=== PATIENT | male | born 1995 | race Caucasian/White ===

== ENCOUNTER 2017-07-10 23:52 | Inpatient (IN) | payer OTHER ==
[~2017-07-10] VITALS: Ht 182.9 cm; Wt 85.2 kg
[~2017-07-10 23:52] MED LIST: HYDR25CA PO
--- NOTE | 2017-07-11 00:24 | EMERGENCY ROOM VISIT NOTE ---
History Report prepared by Dionisio: Cathie La Under the Supervision of: Dr. Tony Hughes M.D. First contact with patient: 00:18 Chief Complaint: OVERDOSE (ACCIDENTAL) Stated Complaint: MIXED SLEEPING PILLS AND BEER History of Present Illness The patient is a 21 year old male who presents to the Emergency Room with complaints of an overdose occurring shortly prior to arrival. His roommates state that the patient mixed sleeping pills and alcohol. His roommates state that the patient keeps changing what he is saying about how much he drank. They state that he says he drank 1 beer but then would state that he had 3 beers. Per his roommates, the patient was playing video games, but then passed out. His roommates state that he fell down 4 stairs and hit his face. Limited HPI secondary to intoxication. Patient has heavily slurred speech. He said he took medications but difficulty determining what he said he took. Source of History: patient, roommate History Limited By: other (overdose) Onset: shortly prior to arrival Position: other (global) Quality: other (overdose ) Review of Systems Limited ROS secondary to intoxication. Past Medical & Surgical Medical Problems: (1) Depression (2) Insomnia Family History Patient reports no known family medical history. Social History Smoking Status: Never Smoker Drug Use: none Marital Status: single Housing Status: lives with roommate Occupation Status: [employer] Current/Historical Medications Scheduled Venlafaxine Hcl (Venlafaxine Extended Rel), 1 CAP PO DAILY Scheduled PRN Zolpidem Tartrate (Ambien), 10 MG PO HS PRN for Sleep Allergies Coded Allergies: No Known Allergies (Unverified , 07/11/17) Physical Exam Vital Signs Date Time Temp Pulse Resp B/P (MAP) Pulse Ox O2 Delivery O2 Flow Rate FiO2 07/11/17 04:01 143/87 07/11/17 03:56 71 22 141/89 100 07/11/17 03:56 35 07/11/17 03:51 146/92 07/11/17 03:46 138/90 07/11/17 03:45 71 07/11/17 03:41 144/87 07/11/17 03:36 146/86 07/11/17 03:31 140/91 07/11/17 03:26 70 19 149/92 100 07/11/17 03:21 143/89 07/11/17 03:20 74 24 100 07/11/17 03:16 149/94 07/11/17 03:15 80 17 07/11/17 03:11 154/91 07/11/17 03:10 72 24 100 07/11/17 03:06 131/90 07/11/17 03:05 74 18 131/90 100 Mechanical Ventilator 07/11/17 03:05 72 12 100 07/11/17 03:00 71 12 100 07/11/17 02:56 145/88 07/11/17 02:55 72 12 100 07/11/17 02:51 138/85 07/11/17 02:50 73 12 100 07/11/17 02:46 134/89 07/11/17 02:45 71 14 100 07/11/17 02:41 140/90 07/11/17 02:40 73 12 100 07/11/17 02:36 138/84 07/11/17 02:35 73 12 100 07/11/17 02:31 134/84 07/11/17 02:30 75 12 100 07/11/17 02:26 143/80 07/11/17 02:25 80 12 100 07/11/17 02:21 143/87 07/11/17 02:20 84 17 100 07/11/17 02:16 146/92 07/11/17 02:15 82 19 100 07/11/17 02:11 143/86 07/11/17 02:10 81 17 100 07/11/17 02:06 137/92 07/11/17 02:05 81 13 100 07/11/17 02:01 133/78 07/11/17 02:00 79 13 100 07/11/17 01:51 113/65 07/11/17 01:50 74 12 100 07/11/17 01:46 117/65 07/11/17 01:45 75 22 100 07/11/17 01:41 35 07/11/17 01:41 115/58 07/11/17 01:40 74 19 100 07/11/17 01:36 134/85 07/11/17 01:35 76 12 100 07/11/17 01:31 130/94 07/11/17 00:44 100 07/11/17 00:13 86 07/10/17 23:58 36.9 92 17 125/79 97 Room Air Physical Exam GENERAL: Patient is heavily intoxicated and clearly under influence. HEENT: Mucous membranes moist, no nasal congestion. Significant nystagmus bilateral eyes. Slightly enlarged left pupil that is reactive. Multiple contusions over face and right-sided head. NECK: No stridor, no adenopathy, no meningismus, trachea is midline. LUNGS: No dyspnea. Clear to auscultation and equal bilaterally. No wheeze, no rhonchi. HEART: Regular rate and rhythm. No murmurs, rubs, gallops appreciated. ABDOMEN: Soft, nontender, bowel sounds positive, no masses appreciated, no peritonitis. BACK: No midline tenderness, no CVA tenderness EXTREMITIES: Normal motion all extremities, no cyanosis, no edema. NEUROLOGIC: No acute motor or sensory deficits, no focal weakness, cranial nerves grossly intact.Slurred speech with difficulty redirecting patient. Smells heavily of alcohol. SKIN: No rash, no jaundice, no diaphoresis. Medical Decision & Procedures ER Provider Diagnostic Interpretation: Radiology results and stated below per my review and radiologist interpretation: Chest X-Ray: No pneumothorax. No fracture. VT tube 4 cm from the maia. Radiology results and stated below per my review and [facility]. CT CHEST with Contrast: Some motion artifact ETT tip is about 3 cm above the maia No acute parenchymal lung disease. No pneumothorax or pleural effusions. Heart and mediastinal structures appear normal. No acute osseous abnormalities. CT ABDOMEN & PELVIS With Contrast: Solid organs are unremarkable. No free air or free fluid. No bowel obstruction. No acute osseous abnormalities. CT HEAD: No acute intracranial hemorrhage, transcortical infarction or mass. No acute fractures. Broad-based maxillary sinus mucous retention cyst. The rest of the visualized paranasal sinuses are clear. The mastoid air cells are clear. CT FACIAL: No acute facial bone fractures. Right-sided facial contusion. No acute mandible fractures. Orbits appear normal. Left frontal sinus is opacified and partial opacification of left anterior ethmoid air cells. Broad-based mucous retention cyst within the right maxillary sinus. Left maxillary sinuses clear. Sphenoid sinuses are clear. CT C SPINE: Normal alignment of cranial-cervical junction. No acute fractures or malalignment. No paraspinous hematoma. Intubated. Laboratory Results Test 07/11/17 00:45 07/11/17 00:51 07/11/17 02:10 RDW Standard Deviation 38.6 fL (36.4-46.3) RDW Coefficient of Variation 12.0 % (11.5-14.5) White Blood Count 6.16 K/uL (4.8-10.8) Red Blood Count 5.08 M/uL (4.7-6.1) Hemoglobin 15.7 g/dL (14.0-18.0) Hematocrit 45.3 % (42-52) Mean Corpuscular Volume 89.2 fL (80-100) Mean Corpuscular Hemoglobin 30.9 pg (25-34) Mean Corpuscular Hemoglobin Concent 34.7 g/dl (32-36) Platelet Count 160 K/uL (130-400) Mean Platelet Volume 10.2 fL (7.4-10.4) Neutrophils (%) (Auto) 54.5 % Lymphocytes (%) (Auto) 36.4 % Monocytes (%) (Auto) 7.1 % Eosinophils (%) (Auto) 1.5 % Basophils (%) (Auto) 0.3 % Neutrophils # (Auto) 3.36 K/uL (1.4-6.5) Lymphocytes # (Auto) 2.24 K/uL (1.2-3.4) Monocytes # (Auto) 0.44 K/uL (0.11-0.59) Eosinophils # (Auto) 0.09 K/uL (0-0.5) Basophils # (Auto) 0.02 K/uL (0-0.2) Immature Granulocyte % (Auto) 0.2 % Immature Granulocyte # (Auto) 0.01 K/uL (0.00-0.02) Est Creatinine Clear Calc Drug Dose 99.4 ml/min Osmolality 315 mOsm/kg (280-300) Total Bilirubin 0.3 mg/dl (0.2-1) Aspartate Amino Transf (AST/SGOT) 12 U/L (15-37) Alanine Aminotransferase (ALT/SGPT) 13 U/L (12-78) Alkaline Phosphatase 60 U/L (45-117) Troponin I < 0.015 ng/ml (0-0.045) Total Protein 7.2 gm/dl (6.4-8.2) Albumin 4.4 gm/dl (3.4-5.0) Globulin 2.8 gm/dl (2.5-4.0) Albumin/Globulin Ratio 1.6 (0.9-2) Thyroid Stimulating Hormone (TSH) 0.592 uIu/ml (0.300-4.500) Salicylates Level < 1.7 mg/dl (2.8-20) Acetaminophen Level < 2 ug/ml (10-30) Ethyl Alcohol mg/dL 87.6 mg/dl (0-3) Bedside Hemoglobin 15.6 g/dl (14.0-18.0) Bedside Hematocrit 46 % (42-52) Bedside Sodium 141 mEq/L (135-144) Bedside Potassium 4.0 mEq/L (3.3-5.0) Bedside Chloride 103 mEq/L (101-112) Bedside Total CO2 23 mEq/l (24-31) Bedside Blood Urea Nitrogen 17 mg/dl (7-18) Bedside Creatinine 1.4 mg/dl (0.6-1.3) Bedside Glucose (other) 89 mg/dl (70-99) Bedside Ionized Calcium (Alfred) 1.19 mmol/l (1.12-1.32) Urine Color YELLOW Urine Appearance CLEAR (CLEAR) Urine pH 5.0 (4.5-7.5) Urine Specific [place] 1.039 (1.000-1.030) Urine Protein NEG (NEG) Urine Glucose (UA) NEG (NEG) Urine Ketones NEG (NEG) Urine Occult Blood NEG (NEG) Urine Nitrite NEG (NEG) Urine Bilirubin NEG (NEG) Urine Urobilinogen NEG (NEG) Urine Leukocyte Esterase NEG (NEG) Urine WBC (Auto) 1-5 /hpf (0-5) Urine RBC (Auto) 0-4 /hpf (0-4) Urine Hyaline Casts (Auto) 1-5 /lpf (0-5) Urine Epithelial Cells (Auto) >30 /lpf (0-5) Urine Bacteria (Auto) NEG (NEG) Urine Renal Epithelial Cells /lpf (0-5) Urine Osmolality 275 mOms/kg (500-800) Urine Opiates Screen NEG (NEG) Urine Methadone, Qualitative NEG (NEG) Urine Barbiturates NEG (NEG) Urine Phencyclidine (PCP) Level NEG (NEG) Ur Amphetamine/Methamphetamine NEG (NEG) MDMA (Ecstasy) Screen NEG (NEG) Urine Benzodiazepines Screen POS (NEG) Urine Cocaine Metabolite NEG (NEG) Urine Marijuana (THC) POS (NEG) Laboratory results as reviewed by me. Medications Administered Medications (Trade) Dose Ordered Sig/Lorenzo Route Start Time Stop Time Status Last Admin Dose Admin Lorazepam (Ativan Inj) 2 mg STK-MED ONCE .ROUTE 07/11/17 00:33 07/11/17 00:34 DC 07/11/17 00:37 2 MG Miscellaneous (Rapid Sequence Induction Bag) 1 ea STK-MED ONCE N/A 07/11/17 00:39 07/11/17 00:40 DC 07/11/17 00:39 1 EA Propofol (Diprivan Iv Emulsion 100ml Vial) 1 dose UD PRN IV 07/11/17 01:00 07/11/17 04:44 DC 07/11/17 00:53 1 DOSE Sodium Chloride 1,000 ml @ 999 mls/hr Q1H1M STAT IV 07/11/17 00:48 07/11/17 01:48 DC 07/11/17 00:46 999 MLS/HR Sodium Chloride 1,000 ml @ 125 mls/hr Q8H STAT IV 07/11/17 01:46 07/11/17 04:44 DC 07/11/17 01:46 125 MLS/HR Hydromorphone HCl (Dilaudid Inj) 1 mg STK-MED ONCE .ROUTE 07/11/17 02:20 07/11/17 02:21 DC 07/11/17 02:20 1 MG Procedure Intubation: Indication: Combative, polysubstance overdose with head injury and need for rapid stabilization Performed by: Jonatan Espinoza, Managed Services Consultant, [facility] under my direct supervision and with my assistance on first attempt. Vitals stable with 100% O2 throughout entire procedure. Meds: etomidate 30mg / succinylcholine 150mg Equipment: 7.5 cuffed tube, #3 Glidescope with stylet. Confirmed: End tital, color change, breath sounds, CXR CXR: ET tube in place mildly high and thus advanced 2 cm. Rep[address] by CT. There were no complications nor difficulties with intubation. ECG Indication: other (altered mental status ) Rate (beats per minute): 74 Rhythm: normal sinus Findings: ST elevation (Anterior leads consistent with earlier repolarization) , no ectopy ED Course 0019: The patient was evaluated in room A10. A complete history and physical exam was performed. 0030: I told the nursing staff to immediately start the patient on Ativan. I told them to be careful with his head, face, and neck as he is a trauma patient. I requested to get an IV, and if they are unable to get it then we will move ahead to intubation. 0033: Ordered Lorazepam 2 mg. 0037: I was present and assisted Jonatan Espinoza [facility] Managed Services Consultant while he was intubating the patient. 0039: Ordered Rapid Sequence Induction Bag. 0048: Ordered Sodium Chloride 1,000 ml @ 999 mls/hr IV, Propofol 1 dose IV. 0055: I talked to the patient's friends and made them aware of what happened. They do not know any family contact information. 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 0100: Ordered Propofol 1 dose IV. 0101: The patient is mildly agitated. He was given 100 mg of Propofol and the tube was advanced 2 cm. 0105: The patient is now at CT scan. 0106: I tried contacting his father and mother, Laci Cunha ([phone]) and Janelle Cunha ([phone]). Mother notes he has a history of problems with benzodiazepines. 0146: Ordered Sodium Chloride 1,000 ml @ 125 mls/hr IV. 0205: The patient's vitals are stable. He is sedated on Propofol. Awaiting CT reports. 0220: The patient is being evaluated by Dr. Uribe 0222: Discussed the patient's case with Tashi Fiore PA-C, ICU. The patient will be evaluated for further treatment and disposition. 0230: Mother notes that the patient is on Lamictal, Ambien, and she believes venlafaxine. She is not aware of any attempt of an overdose. She reports that he has a history of a seizure. 0330: Upon reevaluation, the patient is resting. The patient will be evaluated in the ICU. Medical Decision Differential: Intracranial Injury, Cervical Injury, Intrathoracic/Abdominal Injury, Neurologic Injuries, Fractures/Dislocations, Lacerations, Tetanus Status , amongst other pathologies entertained. 21 yr old male arrives from apartment with roommates for evaluation of head injury after falling down short flight of stairs, in addition to having likely overdosed on multiple medications. Shortly after my initial evaluation patient became increasingly combative, beligerent and unable to redirect. I was unable to verbally deescalate nor re-direct the patient. The patient's combative behavior was risking a catastrophe. To protect the staff and the patient from harm it was necessary to chemically and physically restrain the patient. As he clearly had a head injury, he may have polysubstance overdose and the high acuity and need for rapid control of situation I felt that safest option was to intubate. 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 With his slurred changing story it is possible he was referring to diphenhydramine, fexofenadine, or even methylphenidate, but difficult to be sure of which if any he had taken as unable to get clear story from him. Patient intubated with etomidate/succinylcholine under my direct supervision and assistance by [facility] Managed Services Consultant Jonatan Espinoza. In line stabilization of neck maintained. CXR with mildly high et tube which was advanced and confirmed by following CT. CT head, face, cervical, chest, abdo, pelvis done given inability to get acurate evaluation in this patient (now intubated), his AGUILAR of falling down stairs intoxicated, and the clear evidence of multiple contusions to face/head. Fortunately other than contusions of face/head there were no acute traumatic findings. After intubation we were able to obtain EKG (mild ST elevation consistent with early repol), labs, and send for CT. OG placed as well. Labs with mild renal insufficiency and modest Etoh, otherwise unremarkable. Drug screen with benzos (ambien, ativan we gave, +/- illicit). Mild dehydration by urine. Given fluids, propofol with PRN bolus + Dilaudid for agitation, and monitored closely. Many repetitive evaluations of patient throughout stay and multiple conversations with hospitalist and CCM team. I discussed with mother on 2 occasions to make her aware of what was happening. Admits that they are somewhat estranged and that she does not plan on coming up to see him at this time. She discussed his previous benzo addiction as well as noted he takes Lamictal for seizure, Venlafaxine for depression and Ambien for sleep. She is unaware of other medications. [place] Drug Monitoring Program Search Results: patient reviewed within database Drug Monitoring Findings: Multiple Ambien prescriptions found over the last few months. Head Trauma GCS Score: 12 Medication Reconcilliation Current Medication List: was personally reviewed by me Blood Pressure Screening Patient's blood pressure: Normal blood pressure Consults Time Called: 0200 Consulting Physician: Tashi Fiore PA-C, ICU Returned Call: [phone] Discussed the patient's case. The patient will be evaluated for further treatment and disposition. Additional Consults: Time Called: 020 Consulted Physician: Dr. Joel Berman Returned Call: [phone] Additional Comments: Discussed the patient's case. The patient will be evaluated for further treatment and disposition. Impression Primary Impression: Polysubstance overdose Additional Impressions: Combative behavior Head injury, closed Facial contusion Anticholinergic syndrome Renal insufficiency Dehydration Critical Care I have personally spent greater than 130 minutes of critical care time in the direct management of this patient. This was a life/limb threatening event. This includes time spent evaluating patient, direct bedside care, chart review, placing orders, interpretation of diagnostic studies, discussion with consultants, patient, and family members, as well as other required patient management activities. This 130 minutes is in excess of all separately billable procedures. Scribe Attestation The scribe's documentation has been prepared under my direction and personally reviewed by me in its entirety. I confirm that the note above accurately reflects all work, treatment, procedures, and medical decision making performed by me. Departure Information Dispostion Being Evaluated By Hospitalist [facility] (PCP) Patient Instructions My [facility] Health Problem Qualifiers
[2017-07-11] MEDS ORDERED: ZOLP10TA PO (00:32)
[2017-07-11] MEDS ORDERED: VENL75CA73 PO (00:32)
[2017-07-11] MEDS ORDERED: LORAZEPAM 2 MG/ML 1 ML VIAL ONE (00:33)
[2017-07-11] MEDS ORDERED: RAPID SEQUENCE INDUCTION BAG ONE (00:39)
[2017-07-11] MEDS ORDERED: SODIUM CHLORIDE 0.9% 1000ML 1,000 ML IV STA ×2 (00:48→01:46)
[2017-07-11] MEDS ORDERED: PROPOFOL IV EMULSION 10 MG/ML 100 ML VIAL IV ONE (00:48)
[2017-07-11 00:56] LABS: BASO % 0.3 %; BASO ABS # 0.02 K/uL (0-0.2); COMPLETE YES; EOS % 1.5 %; HEMATOCRIT 45.3 % (42-52); IG% 0.2 %; LYMPH % 36.4 %; LYMPH ABS # 2.24 K/uL (1.2-3.4); MEAN CELL VOLUME 89.2 fL (80-100); MEAN CORPUSCULAR HEMOGLOBIN 30.9 pg (25-34); MEAN CORPUSCULAR HGB CONC 34.7 g/dl (32-36); MEAN PLATELET VOLUME 10.2 fL (7.4-10.4); MONO % 7.1 %; NEUT % 54.5 %; PLATELET COUNT 160 K/uL (130-400); RED BLOOD COUNT 5.08 M/uL (4.7-6.1); WHITE BLOOD COUNT 6.16 K/uL (4.8-10.8)
[2017-07-11] MEDS ORDERED: PROPOFOL IV EMULSION 10 MG/ML 100 ML VIAL IV PRN ×2 (01:00→05:30)
[2017-07-11] MEDS ORDERED: OPTIRAY 320 IV PRN (01:00)
[2017-07-11 01:05] LABS: ISTAT CREATININE 1.4 mg/dl (0.6-1.3); ISTAT HEMOGLOBIN 15.6 g/dl (14.0-18.0); ISTAT IONIZED CALCIUM 1.19 mmol/l (1.12-1.32)
[2017-07-11 01:17] LABS: ALT/SGPT 13 U/L (12-78); BLOOD UREA NITROGEN 16 mg/dl (7-18); BUN/CREATININE RATIO 12.4 (10-20); CALCIUM 8.6 mg/dl (8.5-10.1); CARBON DIOXIDE 25 mmol/L (21-32); CHLORIDE 107 mmol/L (98-107); CREATININE 1.29 mg/dl (0.60-1.40); GLUCOSE 88 mg/dl (70-99); SODIUM 140 mmol/L (136-145)
[2017-07-11 01:28] LABS: ALB/GLOB RATIO 1.6 (0.9-2); ALKALINE PHOSPHATASE 60 U/L (45-117); AST/SGOT 12 U/L (15-37); THYROID STIMULATING HORMONE 0.592 uIu/ml (0.300-4.500)
[2017-07-11 01:37] LABS: ACETAMINOPHEN < 2 ug/ml (10-30)
[2017-07-11] MEDS ORDERED: HYDROmorphone INJ 1 MG/ML SYR ONE (02:20)
[2017-07-11 03:31] LABS: URINE APPEARANCE CLEAR (CLEAR); URINE BILIRUBIN NEG (NEG); URINE COLOR YELLOW; URINE EPITHELIAL CELL AUTO >30 /lpf (0-5); URINE NITRITE NEG (NEG); URINE SPECIFIC GRAVITY 1.039 (1.000-1.030); UROBILINOGEN NEG (NEG); ZZURINE CULT IF INDIC CATH NO
[2017-07-11 03:33] LABS: MANUAL MICROSCOPIC REQUIRED? NO; REVIEW REQ? YES
[2017-07-11 04:15] VITALS: BP 134/98; PULSE 83; TEMP 36.5; O2SAT 100; Ht 182.9 cm; Wt 85.2 kg
[2017-07-11 04:20] LABS: COCAINE,URINE NEG (NEG); PHENCYCLIDINE, URINE NEG (NEG)
[2017-07-11] MEDS ORDERED: FENTANYL CITRATE INJ 50 MCG/1 ML 2 ML VIAL IV PRN (04:30)
[2017-07-11] MEDS ORDERED: NORMOSOL R 1,000 ML IV SCH (04:30)
[2017-07-11 05:01] VITALS: BP 123/91; PULSE 75; O2SAT 100
[2017-07-11 05:07] LABS: BENZODIAZEPINE, URINE POS (NEG)
--- NOTE | 2017-07-11 05:18 | Critical Care Consultation ---
Critical Care Consultation Date of Consultation: Jul 11, 2017. Attending Physician: Dr. Avila Reason for Consultation: Altered mental status and combative patient in the setting of alcohol and prescription medication abuse requiring sedation and endotracheal intubation. History of Present Illness History of present illness was unable to be obtained from the patient secondary to current state of sedation and endotracheal intubation. Historical information was obtained from Emergency Department staff an providers as well as nursing notes. Patient is a 21-year-old male who was reportedly found by friends to be extremely intoxicated. The patient allegedly sustained a fall down approximately 4 steps. In his room, he was found to have an open pill bottle of Ambien pills present. He is known to be prescribed these. He was brought to the emergency Department by private vehicle with his friends. On arrival, the patient was alert and conversant with staff members. He was initially argumentative with staff, but was agreeable to initial evaluation. Eventually, the patient became increasingly combative with staff and became a threat to himself as well as staff members. At this point, the patient was sedated and endotracheally intubated. While in the emergency department, the patient had an essentially unremarkable laboratory workup. He had trouble scans performed of the head, neck, chest, and abdomen/pelvis which were all essentially unremarkable. The friends were uncertain as to what the patient took specifically. There was concern of Ambien use versus fexofenadine use versus methylphenidate use. Per conversation with ED physician, the patient's mother was contacted and is reportedly estranged from the patient. The patient had an apparent history of benzodiazepine abuse last year, however she is uncertain if he is still using his medications. Per records and per conversation with mother, there was concern for possible underlying seizure disorder status post one previous seizure in the past. He does have prescription for Lamictal. Past Medical/Surgical History Medical Problems: (1) Depression (2) Insomnia Family History Patient reports no known family medical history. noncontributory Social History Smoking Status: Never Smoker Smokeless Tobacco Use: No Alcohol Use: Drug Use: none Marital Status: single Housing Status: lives with roommate Occupation Status: [employer] student Allergies Coded Allergies: No Known Allergies (Unverified , 07/11/17) Home Medications Scheduled Venlafaxine Hcl (Venlafaxine Extended Rel), 1 CAP PO DAILY Scheduled PRN Zolpidem Tartrate (Ambien), 10 MG PO HS PRN for Sleep Current Inpatient Medications Current Inpatient Medications Medications (Trade) Dose Ordered Sig/Lorenzo Route Start Time Stop Time Status Last Admin Dose Admin Propofol (Diprivan Iv Emulsion 100ml Vial) 1 dose UD PRN IV 07/11/17 01:00 07/14/17 00:59 07/11/17 00:53 1 DOSE Ioversol (Optiray 320) 100 ml UD PRN IV 07/11/17 01:00 07/15/17 00:59 Sodium Chloride 1,000 ml @ 125 mls/hr Q8H STAT IV 07/11/17 01:46 07/11/17 09:45 07/11/17 01:46 125 MLS/HR Review of Systems Unable to obtain secondary to patient's current state of sedation and endotracheal intubation. Physical Exam Date Time Temp Pulse Resp B/P (MAP) Pulse Ox O2 Delivery O2 Flow Rate FiO2 07/11/17 03:45 71 07/11/17 03:21 143/89 07/11/17 03:20 74 24 100 07/11/17 03:16 149/94 07/11/17 03:15 80 17 07/11/17 03:11 154/91 07/11/17 03:10 72 24 100 07/11/17 03:06 131/90 07/11/17 03:05 74 18 131/90 100 Mechanical Ventilator 07/11/17 03:05 72 12 100 07/11/17 03:00 71 12 100 07/11/17 02:56 145/88 07/11/17 02:55 72 12 100 07/11/17 02:51 138/85 07/11/17 02:50 73 12 100 07/11/17 02:46 134/89 07/11/17 02:45 71 14 100 07/11/17 02:41 140/90 07/11/17 02:40 73 12 100 07/11/17 02:36 138/84 07/11/17 02:35 73 12 100 07/11/17 02:31 134/84 07/11/17 02:30 75 12 100 07/11/17 02:26 143/80 07/11/17 02:25 80 12 100 07/11/17 02:21 143/87 07/11/17 02:20 84 17 100 07/11/17 02:16 146/92 10/26/17 02:15 82 19 100 07/11/17 02:11 143/86 07/11/17 02:10 81 17 100 07/11/17 02:06 137/92 07/11/17 02:05 81 13 100 07/11/17 02:01 133/78 07/11/17 02:00 79 13 100 07/11/17 01:51 113/65 07/11/17 01:50 74 12 100 07/11/17 01:46 117/65 07/11/17 01:45 75 22 100 07/11/17 01:41 35 07/11/17 01:41 115/58 07/11/17 01:40 74 19 100 07/11/17 01:36 134/85 07/11/17 01:35 76 12 100 07/11/17 01:31 130/94 07/11/17 00:44 100 07/11/17 00:13 86 07/10/17 23:58 36.9 92 17 125/79 97 Room Air VITAL SIGNS - Vital signs and nursing notes were reviewed. GENERAL - 21-year-old male appearing his stated age who is in no acute distress. Sedated and endotracheally intubated. Retracts extremities to painful stimuli. SKIN - Small abrasion noted to the bridge of the nose. HEAD - NC/AT. EYES - Sluggish pupils with EOMI bilaterally. Sclera anicteric. Palpebral conjunctiva pink and moist with no injection noted. EARS - No deformities of external structures noted on gross examination bilaterally. External auditory canals without discharge or otorrhea. Tympanic membranes pearly dasilva without retraction or bulging. No hemotympanum. No fluid or purulent material visualized behind the TM. NOSE - Midline and without cyanosis. No epistaxis or purulent drainage noted. Septum midline without deviation or septal hematoma noted. MOUTH/OROPHARYNX - Without perioral cyanosis. Buccal mucosa pink and moist. NECK - Neck with FROM. Supple to palpation. No nuchal rigidity. LUNGS - Chest wall symmetric without accessory muscle use, intercostals retractions, or central cyanosis. Normal vesicular breath sounds CTA B/L. No wheezes, rales, or rhonchi appreciated. CARDIAC - RRR with S1/S2. No murmur, rubs, or gallops appreciated. ABDOMEN - Abdominal contour flat without pulsations or visible masses. BS normoactive all four quadrants. No tenderness, palpable masses, hepatosplenomegaly, or ascites noted. EXTREMITIES - No clubbing or peripheral cyanosis. No pretibial edema present. +3 /5 radial and dorsalis pedis pulses palpated throughout. NEUROLOGIC - Unable to be assessed secondary to state of sedation with endotracheal intubation. PSYCH - Unable to be assessed secondary to state of sedation with endotracheal intubation. Laboratory Results Last 24 Hours Test 07/11/17 00:45 07/11/17 00:51 07/11/17 02:10 White Blood Count 6.16 K/uL Red Blood Count 5.08 M/uL Hemoglobin 15.7 g/dL Hematocrit 45.3 % Mean Corpuscular Volume 89.2 fL Mean Corpuscular Hemoglobin 30.9 pg Mean Corpuscular Hemoglobin Concent 34.7 g/dl Platelet Count 160 K/uL Mean Platelet Volume 10.2 fL Neutrophils (%) (Auto) 54.5 % Lymphocytes (%) (Auto) 36.4 % Monocytes (%) (Auto) 7.1 % Eosinophils (%) (Auto) 1.5 % Basophils (%) (Auto) 0.3 % Neutrophils # (Auto) 3.36 K/uL Lymphocytes # (Auto) 2.24 K/uL Monocytes # (Auto) 0.44 K/uL Eosinophils # (Auto) 0.09 K/uL Basophils # (Auto) 0.02 K/uL RDW Standard Deviation 38.6 fL RDW Coefficient of Variation 12.0 % Immature Granulocyte % (Auto) 0.2 % Immature Granulocyte # (Auto) 0.01 K/uL Sodium Level 140 mmol/L Potassium Level 4.0 mmol/L Chloride Level 107 mmol/L Carbon Dioxide Level 25 mmol/L Anion Gap 8.0 mmol/L 19.0 mmol/L Blood Urea Nitrogen 16 mg/dl Creatinine 1.29 mg/dl Est Creatinine Clear Calc Drug Dose 99.4 ml/min Estimated GFR () 91.2 Estimated GFR (Non- 78.7 BUN/Creatinine Ratio 12.4 Random Glucose 88 mg/dl Calcium Level 8.6 mg/dl Total Bilirubin 0.3 mg/dl Aspartate Amino Transf (AST/SGOT) 12 U/L Alanine Aminotransferase (ALT/SGPT) 13 U/L Alkaline Phosphatase 60 U/L Total Creatine Kinase 203 U/L Troponin I < 0.015 ng/ml Total Protein 7.2 gm/dl Albumin 4.4 gm/dl Globulin 2.8 gm/dl Albumin/Globulin Ratio 1.6 Thyroid Stimulating Hormone (TSH) 0.592 uIu/ml Salicylates Level < 1.7 mg/dl Acetaminophen Level < 2 ug/ml Ethyl Alcohol mg/dL 87.6 mg/dl Bedside Hemoglobin 15.6 g/dl Bedside Hematocrit 46 % Bedside Sodium 141 mEq/L Bedside Potassium 4.0 mEq/L Bedside Chloride 103 mEq/L Bedside Total CO2 23 mEq/l Bedside Blood Urea Nitrogen 17 mg/dl Bedside Creatinine 1.4 mg/dl Bedside Glucose (other) 89 mg/dl Bedside Ionized Calcium (Alfred) 1.19 mmol/l Urine Color YELLOW Urine Appearance CLEAR Urine pH 5.0 Urine Specific Malo 1.039 Urine Protein NEG Urine Glucose (UA) NEG Urine Ketones NEG Urine Occult Blood NEG Urine Nitrite NEG Urine Bilirubin NEG Urine Urobilinogen NEG Urine Leukocyte Esterase NEG Urine WBC (Auto) 1-5 /hpf Urine RBC (Auto) 0-4 /hpf Urine Hyaline Casts (Auto) 1-5 /lpf Urine Epithelial Cells (Auto) >30 /lpf Urine Bacteria (Auto) NEG Urine Renal Epithelial Cells /lpf Diagnostic Results Radiological imaging and reports, labs, and other diagnostic studies were reviewed by myself. Assessment & Plan (1) Combative behavior (2) Head injury, closed (3) Facial contusion (4) Polysubstance overdose Reason Critically Ill: 21-year-old male with possible multi-substance abuse/ overdose with altered mental status and combative behavior requiring sedation with endotracheal intubation and mechanical ventilation. Neuro - * CAM ICU: Unable to assess 2/2 RASS of -3/-4. * Sedation: Propofol gtt. * Pain Rx: Fentanyl 50 mcg q1h PRN. * Ativan PRN agitation. * Multi Substance Overdose with Combative Behavior: * Currently sedated and mechanically intubated. * Negative Trauma CT scans. * Spoke with Poison control at 0434 - recommend continuing course with IVF resuscitation and weaning from ventilator when able. * Patient not tachycardic, without dry mucus membranes. Certainly an anticholinergic or serotonin syndrome could explain the patient's combativeness. Suspect multiple agents blunting the affects of each other resulting in current state. * Will recheck CPK in the setting of multidrug overdose. * Will check Serum Osmoles for ??toxic alcohol ingestion, however patient's anion gap not suggestive of this. * EtOH 87.6 mg/dL - suggests multiple substances resulting in current state. * Possible Seizure Disorder: * Possible on Lamictal per records. * Added Lamictal level. * Patient's presentation and current lack of symptoms of gross seizure like activity do not lend themselves to status at this point. * Will check Lactic Acid to loom fixer helper in further evaluation. * Will hold on spot EEG currently due to patient's lack of symptoms, lack of presenting symptoms, and vague history of "possible seizure disorder." * Depression: * Appreciate psychiatric consultation in the setting of baseline depression, benzodiazepine abuse history resulting in estrangement from family, and current episode of overdose with unknown intentions. Cardiac - * No known history of cardiac disease. * EKG in ED demonstrates NSR @ 74 bpm w/ early repolarization. * Repeat EKG at 0430 was unchanged. * QTc: 430ms. * Will monitor on telemetry. * EKG later in AM to monitor for any QTc changes. Respiratory - * Intubated and Mechanically Sedated: * Settings: AC - 12/500mL/5mmH20/30% * No known history of pulmonary disease otherwise. * Unremarkable CXR. Will repeat this AM. * Extubate as soon as possible. GI - * Will add Protonix for prophylaxis. * NPO at this time. RENAL/LYTES - * Will monitor electrolytes appropriately - replace as necessary. * IVF: Normosol @125 mL/hr. - * Page Catheter in place. * Strict I&Os. ENDO - * No known h/o DM. * TSH not suggestive of thyroid disease as contributing factor. HEME - * Stable H&H. * Will monitor daily. ID - * No concerns for infections processes at this point. * Monitor fever curve. LINES/IV ACCESS - * PIVs intact. * Endotracheally Intubated. * Page Catheter in place. DVT PROPHYLAXIS - * SCDs. * Will refrain from chemical anticoagulation in the setting of recent fall with head trauma. Expect early ambulation. I have personally spent 45 minutes of critical care time in the direct management of this patient. This is a life/limb threatening event. This includes time spent evaluating patient, direct bedside care, chart review, placing orders, interpretation of diagnostic studies, discussion with consultants, patient, and family members, as well as other required patient management activities. This time is exclusive of all separately billable procedures, and teaching time and separate from and in addition to any other critical care service time. Thank you for this consultation allow us to be part of this patient's care. Please refer to my attending physician's documentation for any further recommendations. I have personally evaluated and examined this patient. I agree with assessment and plan of Radha Fiore PA-C. Easily arousable, following complex commands, extubation parameters acceptable, extubation order placed.
[2017-07-11 05:31] VITALS: BP 132/85; PULSE 73; O2SAT 100
--- NOTE | 2017-07-11 05:35 | History and Physical ---
History & Physical Date & Time of Service: Jul 11, 2017 at 05:15 Chief Complaint: Unresponsive And Combative Primary Care Physician: [facility] History of Present Illness Source: hospital records, other 21 y/o M Hx benzodiazepine abuse, depression, seizure disorder - had been drinking alcohol and was playing video games with a few friends. He reportedly became unresponsive and EMS was then summoned. An empty bottle of Ambien was found at the seen and possibly fexofenadine. The pt was highly combative on arrival to the ER and nystagmus was documented. He was subsequently sedated and intubated. We could not therefore, obtain any additional information from this pt at the time of admission. He is estranged from family, however, his mother apparently confirmed a seizure disorder and a history of benzo abuse. Friends did report that he may have fallen down a flight of [address] head is negative for ICH. A UDS is + only for benzos and THC Past Medical/Surgical History Medical Problems: (1) Depression Status: Chronic (2) Insomnia Status: Chronic Family History Patient reports no known family medical history. Noncontributory Social History reported history of benzodiazepine abuse Smoking Status: Never Smoker Drug Use: none Marital Status: single Occupational Status: [employer] student Allergies Coded Allergies: No Known Allergies (Unverified , 07/11/17) Home Medications Scheduled Venlafaxine Hcl (Venlafaxine Extended Rel), 1 CAP PO DAILY Scheduled PRN Zolpidem Tartrate (Ambien), 10 MG PO HS PRN for Sleep Review of Systems Cannot obtain Physical Exam Vital Signs Date Time Temp Pulse Resp B/P (MAP) Pulse Ox O2 Delivery O2 Flow Rate FiO2 07/11/17 04:35 30 07/11/17 04:01 143/87 07/11/17 03:56 71 22 141/89 100 07/11/17 03:56 35 07/11/17 03:51 146/92 07/11/17 03:46 138/90 07/11/17 03:45 71 07/11/17 03:41 144/87 07/11/17 03:36 146/86 07/11/17 03:31 140/91 07/11/17 03:26 70 19 149/92 100 07/11/17 03:21 143/89 07/11/17 03:20 74 24 100 07/11/17 03:16 149/94 07/11/17 03:15 80 17 07/11/17 03:11 154/91 07/11/17 03:10 72 24 100 07/11/17 03:06 131/90 07/11/17 03:05 74 18 131/90 100 Mechanical Ventilator 07/11/17 03:05 72 12 100 07/11/17 03:00 71 12 100 07/11/17 02:56 145/88 07/11/17 02:55 72 12 100 07/11/17 02:51 138/85 07/11/17 02:50 73 12 100 07/11/17 02:46 134/89 07/11/17 02:45 71 14 100 07/11/17 02:41 140/90 07/11/17 02:40 73 12 100 07/11/17 02:36 138/84 07/11/17 02:35 73 12 100 07/11/17 02:31 134/84 07/11/17 02:30 75 12 100 07/11/17 02:26 143/80 07/11/17 02:25 80 12 100 07/11/17 02:21 143/87 07/11/17 02:20 84 17 100 07/11/17 02:16 146/92 07/11/17 02:15 82 19 100 07/11/17 02:11 143/86 07/11/17 02:10 81 17 100 07/11/17 02:06 137/92 07/11/17 02:05 81 13 100 07/11/17 02:01 133/78 07/11/17 02:00 79 13 100 07/11/17 01:51 113/65 07/11/17 01:50 74 12 100 07/11/17 01:46 117/65 07/11/17 01:45 75 22 100 07/11/17 01:41 35 07/11/17 01:41 115/58 07/11/17 01:40 74 19 100 07/11/17 01:36 134/85 07/11/17 01:35 76 12 100 07/11/17 01:31 130/94 07/11/17 00:44 100 07/11/17 00:13 86 07/10/17 23:58 36.9 92 17 125/79 97 Room Air General Appearance: + pertinent finding (Average weight young male - sedated / iintubated - upils equal,sluggish) Head: normocephalic, atraumatic Eyes: normal inspection Neck: supple, no JVD Respiratory/Chest: chest non-tender, lungs clear, normal breath sounds Cardiovascular: regular rate, rhythm, no edema, no gallop, no JVD, no murmur, normal peripheral pulses Abdomen/GI: normal bowel sounds, soft Back: normal inspection, no CVA tenderness, no muscle spasm, normal range of motion Extremities/Musculoskelatal: normal inspection, no pedal edema Neurologic/Psych: + pertinent finding (Cannot complete exam due to sedation - pupils are equal - nstagmus was reoprted prior to sedation) Diagnostics Laboratory Results Results Past 24 Hours Test 07/11/17 00:45 07/11/17 00:51 07/11/17 02:10 07/11/17 04:22 Range/Units White Blood Count 6.16 4.8-10.8 K/uL Red Blood Count 5.08 4.7-6.1 M/uL Hemoglobin 15.7 14.0-18.0 g/dL Hematocrit 45.3 42-52 % Mean Corpuscular Volume 89.2 80-100 fL Mean Corpuscular Hemoglobin 30.9 25-34 pg Mean Corpuscular Hemoglobin Concent 34.7 32-36 g/dl Platelet Count 160 130-400 K/uL Mean Platelet Volume 10.2 7.4-10.4 fL Neutrophils (%) (Auto) 54.5 % Lymphocytes (%) (Auto) 36.4 % Monocytes (%) (Auto) 7.1 % Eosinophils (%) (Auto) 1.5 % Basophils (%) (Auto) 0.3 % Neutrophils # (Auto) 3.36 1.4-6.5 K/uL Lymphocytes # (Auto) 2.24 1.2-3.4 K/uL Monocytes # (Auto) 0.44 0.11-0.59 K/uL Eosinophils # (Auto) 0.09 0-0.5 K/uL Basophils # (Auto) 0.02 0-0.2 K/uL RDW Standard Deviation 38.6 36.4-46.3 fL RDW Coefficient of Variation 12.0 11.5-14.5 % Immature Granulocyte % (Auto) 0.2 % Immature Granulocyte # (Auto) 0.01 0.00-0.02 K/uL Sodium Level 140 136-145 mmol/L Potassium Level 4.0 3.5-5.1 mmol/L Chloride Level 107 98-107 mmol/L Carbon Dioxide Level 25 21-32 mmol/L Anion Gap 8.0 19.0 16-25 mmol/L Blood Urea Nitrogen 16 7-18 mg/dl Creatinine 1.29 0.60-1.40 mg/dl Est Creatinine Clear Calc Drug Dose 99.4 ml/min Estimated GFR () 91.2 Estimated GFR (Non- 78.7 BUN/Creatinine Ratio 12.4 10-20 Random Glucose 88 70-99 mg/dl Calcium Level 8.6 8.5-10.1 mg/dl Total Bilirubin 0.3 0.2-1 mg/dl Aspartate Amino Transf (AST/SGOT) 12 15-37 U/L Alanine Aminotransferase (ALT/SGPT) 13 12-78 U/L Alkaline Phosphatase 60 45-117 U/L Total Creatine Kinase 203 39-308 U/L Troponin I < 0.015 0-0.045 ng/ml Total Protein 7.2 6.4-8.2 gm/dl Albumin 4.4 3.4-5.0 gm/dl Globulin 2.8 2.5-4.0 gm/dl Albumin/Globulin Ratio 1.6 0.9-2 Thyroid Stimulating Hormone (TSH) 0.592 0.300-4.500 uIu/ml Salicylates Level < 1.7 2.8-20 mg/dl Acetaminophen Level < 2 10-30 ug/ml Ethyl Alcohol mg/dL 87.6 0-3 mg/dl Bedside Hemoglobin 15.6 14.0-18.0 g/dl Bedside Hematocrit 46 42-52 % Bedside Sodium 141 135-144 mEq/L Bedside Potassium 4.0 3.3-5.0 mEq/L Bedside Chloride 103 101-112 mEq/L Bedside Total CO2 23 24-31 mEq/l Bedside Blood Urea Nitrogen 17 7-18 mg/dl Bedside Creatinine 1.4 0.6-1.3 mg/dl Bedside Glucose (other) 89 70-99 mg/dl Bedside Ionized Calcium (Alfred) 1.19 1.12-1.32 mmol/l Urine Color YELLOW Urine Appearance CLEAR CLEAR Urine pH 5.0 4.5-7.5 Urine Specific [place] 1.039 1.000-1.030 Urine Protein NEG NEG Urine Glucose (UA) NEG NEG Urine Ketones NEG NEG Urine Occult Blood NEG NEG Urine Nitrite NEG NEG Urine Bilirubin NEG NEG Urine Urobilinogen NEG NEG Urine Leukocyte Esterase NEG NEG Urine WBC (Auto) 1-5 0-5 /hpf Urine RBC (Auto) 0-4 0-4 /hpf Urine Hyaline Casts (Auto) 1-5 0-5 /lpf Urine Epithelial Cells (Auto) >30 0-5 /lpf Urine Bacteria (Auto) NEG NEG Urine Renal Epithelial Cells 0-5 /lpf Urine Opiates Screen NEG NEG Urine Methadone, Qualitative NEG NEG Urine Barbiturates NEG NEG Urine Phencyclidine (PCP) Level NEG NEG Ur Amphetamine/Methamphetamine NEG NEG MDMA (Ecstasy) Screen NEG NEG Urine Benzodiazepines Screen POS NEG Urine Cocaine Metabolite NEG NEG Urine Marijuana (THC) POS NEG Test 07/11/17 04:44 07/11/17 04:54 Range/Units Microbiology Results 07/11/17 MRSA DNA Surveillance Screen, Received Pending Impression Assessment and Plan 21 y/o M Hx benzodiazepine abuse, seizure disorder - had been drinking alcohol and was playing video games with a few friends. He reportedly became unresponsive and EMS was then summoned. An empty bottle of Ambien was found at the seen and possibly fexofenadine. The pt was highly combative on arrival to the ER and nystagmus was documented. He was subsequently sedated and intubated. We could not therefore, obtain any additional information from this pt at the time of admission. He is estranged from family, however, his mother apparently confirmed a seizure disorder and a history of benzo abuse. Friends did report that he may have fallen down a flight of [address] head is negative for ICH. A UDS is + only for Benzos and THC. 1) Unresponsive then combative - likely combination of drugs and alcohol rather than significant head trauma. The pt is assigned to the ICU and currently sedated with Propofol. We will check a Lamictal level as he was prescribed this for seizures and we are unable to identify which medication or drugs he took. 2) Seizure disorder - a post-ictal state is certainly +. A prolactin level would not likely be useful due to time lapse. He is provided with PRN Ativan both for withdrawal and seizures. Full code - SCDs Toatl time for this admit including review of labs, meds, imaging - discussion with pt and ER attending - including critical care time - 40 min Level of Care Critical Care Resuscitation Status FULL RESUSCITATION VTE Prophylaxis VTE Risk Assessment Done? Y/N: Yes Risk Level: High Given or contraindicated: SCD's
[2017-07-11 06:07] LABS: BLOOD UREA NITROGEN 10 mg/dl (7-18); BUN/CREATININE RATIO 14.2 (10-20); CALCIUM 5.6 mg/dl (8.5-10.1); CARBON DIOXIDE 20 mmol/L (21-32); CHLORIDE 115 mmol/L (98-107); CREATININE 0.72 mg/dl (0.60-1.40); GLUCOSE 77 mg/dl (70-99); MAGNESIUM 1.6 mg/dl (1.8-2.4); POTASSIUM 3.3 mmol/L (3.5-5.1); SODIUM 143 mmol/L (136-145)
[2017-07-11] MEDS: POTASSIUM CHLR 10 MEQ / WTR 10 MEQ in PREMIXED WATER 100 ML IV SCH ×2 (06:42→08:40)
--- NOTE | 2017-07-11 06:52 | DIAGNOSTIC IMAGING REPORT ---
FACIAL BONES-MXILLOFAC WITHOUT CT DOSE: HISTORY: Trauma. Pain. head injury TECHNIQUE: Multiaxial CT images of the maxillofacial region were performed and reformatted in the coronal plane without the use of contrast. A dose lowering technique was utilized adhering to the principles of ALARA. COMPARISON: None. FINDINGS: Moderate mucosal thickening right maxillary sinus. Mild mucosal thickening of the ethmoid and frontal sinuses. No acute bony abnormality. Right facial soft tissue edematous change. Mastoid air cells are clear. The temporomandibular joints are intact. Orbital margins including orbital floors are intact. IMPRESSION: 1. No acute bony abnormality. 2. Moderate chronic sinus change. 3. Right facial posttraumatic edema/contusion. The above report was generated using voice recognition software. It may contain grammatical, syntax or spelling errors. Electronically signed by: Haroon Peters M.D. 07/11/2017 6:51 AM Dictated Date/Time: 07/11/2017 6:48 AM
[2017-07-11] MEDS ORDERED: POTASSIUM CHLORIDE PWD 20 MEQ PACK PO ONE (07:00)
--- NOTE | 2017-07-11 07:01 | DIAGNOSTIC IMAGING REPORT ---
CT SCAN OF THE CERVICAL SPINE CLINICAL HISTORY: Head injury. Intoxication. COMPARISON STUDY: No priors. TECHNIQUE: CT scan of the cervical spine is performed from the skull base to the upper thoracic spine. Images are reviewed in the axial, sagittal, and coronal planes. IV contrast was not administered for this examination. A dose lowering technique was utilized adhering to the principles of ALARA. FINDINGS: Skeletal structures: The skeletal structures are well mineralized. There is no evidence of fracture or subluxation involving the cervical spine. Vertebral body height and alignment are maintained. The odontoid process and lateral masses are intact. The atlantoaxial articulation is preserved. The spinous processes appear intact. There is straightening of the cervical lordosis. Intervertebral discs: The disc spaces are well maintained. Central canal: Widely patent. Soft tissues: The prevertebral and paraspinous soft tissues are within normal limits. Layering secretions are present within the pharynx. Calvarium: The visualized calvarium at the skull base appears intact. Brain parenchyma: Partially visualized brain parenchyma the skull base is within normal limits. Sinuses and mastoids: Mild mucosal thickening is noted within the maxillary antra. The mastoid air cells are well pneumatized. Lung apices: Clear as visualized. Endotracheal tube is in place. IMPRESSION: There is no evidence of fracture or subluxation involving the cervical spine. Electronically signed by: Ranjan Mcneil M.D. 07/11/2017 7:00 AM Dictated Date/Time: 07/11/2017 6:57 AM
--- NOTE | 2017-07-11 07:02 | DIAGNOSTIC IMAGING REPORT ---
ABD/PELVIS IV CONTRAST ONLY CT DOSE: HISTORY: Trauma trauma, intoxicated TECHNIQUE: Multiaxial CT images of the abdomen and pelvis were performed following the use of intravenous contrast. A dose lowering technique was utilized adhering to the principles of ALARA. COMPARISON STUDY: None. FINDINGS: The lung bases are clear. The liver, spleen, gallbladder, pancreas, kidneys, and adrenal glands are within normal limits. No bowel wall thickening or obstruction. The pelvic organs are unremarkable. No suspicious lytic or blastic osseous lesions. IMPRESSION: No significant abnormality identified within the abdomen or pelvis. The above report was generated using voice recognition software. It may contain grammatical, syntax or spelling errors. Electronically signed by: Haroon Peters M.D. 07/11/2017 7:00 AM Dictated Date/Time: 07/11/2017 6:58 AM
--- NOTE | 2017-07-11 07:05 | DIAGNOSTIC IMAGING REPORT ---
CT SCAN OF THE BRAIN WITHOUT IV CONTRAST CLINICAL HISTORY: Head injury. Intoxication. COMPARISON STUDY: CT of the brain dated 06/27/2016. TECHNIQUE: Unenhanced axial CT scan of the brain is performed from the vertex to the skull base. A dose lowering technique was utilized adhering to the principles of ALARA. FINDINGS: An endotracheal tube is noted on the lateral wafer production worker view. Brain parenchyma: The brain parenchyma is normal in appearance. There is no hemorrhage, mass effect, or evidence of acute territorial ischemia by CT criteria. [place]-white matter is preserved. No extra-axial fluid collection is seen. Ventricles, sulci, cisterns: Normal in configuration. Intracranial vasculature: The visualized intracranial vasculature at the skull base is normal in appearance. Calvarium: There is no depressed calvarial fracture. Soft tissues: There is mild frontal scalp contusion. Sinuses and mastoids: There is near complete opacification of the left frontal sinus. Mild mucosal thickening is present within the right maxillary antrum. The remaining Visualized paranasal sinuses are clear. The mastoid air cells are well pneumatized. Orbits: The bony orbits are grossly intact. IMPRESSION: No acute intracranial abnormality. Electronically signed by: Ranjan Mcneil M.D. 07/11/2017 7:03 AM Dictated Date/Time: 07/11/2017 7:01 AM
--- NOTE | 2017-07-11 07:22 | DIAGNOSTIC IMAGING REPORT ---
CHEST ONE VIEW PORTABLE HISTORY: intubated COMPARISON: None. FINDINGS: The lungs are clear. Cardiac silhouette is normal in size. No pleural effusions. No pneumothorax. Endotracheal tube terminates 4.2 cm from the maia. IMPRESSION: No acute process. The endotracheal tube terminates 4.2 cm from the maia. Electronically signed by: Gareth Martinez M.D. 07/11/2017 7:21 AM Dictated Date/Time: 07/11/2017 7:20 AM
--- NOTE | 2017-07-11 07:22 | DIAGNOSTIC IMAGING REPORT ---
CHEST CT WITH CONTRAST CT DOSE: 1978.28 mGy.cm HISTORY: trauma, intoxicated TECHNIQUE: Multiaxial CT images of the chest were performed following the intravenous administration of contrast. A dose lowering technique was utilized adhering to the principles of ALARA. COMPARISON: None. FINDINGS: The lungs are clear. The mediastinal vascular structures are within normal limits. No mediastinal or hilar lymphadenopathy. No pleural effusion or pneumothorax. Limited views of the upper abdomen demonstrate a normal liver and spleen. A few small blebs of the lung apices. Mild motion artifact. Questionable minimal superior endplate compression deformities at T4-T8. There is no surrounding paravertebral edema to suggest an acute process. Endotracheal tube terminates approximately 3 centimeters from the maia. IMPRESSION: 1. Questionable minimal superior endplate compression deformities at T4-T8 which are age indeterminate. This could be within the range of normal limits. Recommend correlation for pain at this location to exclude the possibility of subtle acute compression fractures. 2. Otherwise, no acute traumatic process within the chest. Electronically signed by: Gareth Martinez M.D. 07/11/2017 7:20 AM Dictated Date/Time: 07/11/2017 7:13 AM
[2017-07-11 07:41] LABS: HEMATOCRIT 36.4 % (42-52); MEAN CELL VOLUME 90.3 fL (80-100); MEAN CORPUSCULAR HGB CONC 34.3 g/dl (32-36); MEAN PLATELET VOLUME 10.2 fL (7.4-10.4); PLATELET COUNT 124 K/uL (130-400); RED BLOOD COUNT 4.03 M/uL (4.7-6.1); WHITE BLOOD COUNT 6.35 K/uL (4.8-10.8)
[2017-07-11 08:00] VITALS: BP 135/80; PULSE 85; TEMP 36.8; O2SAT 100; O2SAT 99
[2017-07-11 10:00] VITALS: BP 110/72; PULSE 98; O2SAT 98
[2017-07-11] MEDS ORDERED: MAGNESIUM OXIDE 400 MG TAB PO SCH (10:00)
--- NOTE | 2017-07-11 10:52 | Discharge Instructions ---
Discharge Instructions Date of Service Jul 11, 2017. Admission Reason for Admission: Unresponsive And Combative Discharge Discharge Diagnosis / Problem: Alcohol and prescription medication abuse Discharge Goals Goal(s): Decrease discomfort, Diagnostic testing, Therapeutic intervention, Prevent Disease Progression Activity Recommendations Activity Limitations: per Instructions/Follow-up section . Instructions / Follow-Up Instructions / Follow-Up You were intubated and admitted to the ICU as you were combative with medical staff and you were slurring your speech Please continue with your current medications as prescribed. Please do not drink alcohol or take any other illicit substances. Please follow up with Dr. Ramsey at [facility] in [place] on July 18 at [phone]. [phone] Please refrain from driving today or handling any heavy machinery as you have had medications in the hospital that can impair your ability to do these things You can use tylenol or ibuprofen over the counter to help relieve any pain you have in your throat If you have any thoughts of hurting yourself you can phone [phone] or phone Dr. Jaime office at [phone] Current Hospital Diet Patient's current hospital diet: Discharge Diet Recommended Diet: Regular Diet Pending Studies Studies pending at discharge: no Medical Emergencies . Who to Call and When: Medical Emergencies: If at any time you feel your situation is an emergency, please call 911 immediately. . Non-Emergent Contact Non-Emergency issues call your: Primary Care Provider . . "Provider Documentation" section prepared by Tony Ramsey. . VTE Core Measure Inpt VTE Proph given/why not?: SCD's
[2017-07-11] MEDS ORDERED: PANTOprazole INJ 40 MG in SYRINGE 0 ML IV SCH (11:00)
[2017-07-11 11:43] VITALS: BP 110/72; PULSE 98; TEMP 36.8; O2SAT 98
--- NOTE | 2017-07-11 11:49 | Discharge Summary ---
Discharge Summary Date of Service Jul 11, 2017. Discharge Summary Admission Date: Jul 11, 2017 at 04:12 Discharge Date: Jul 11, 2017 Discharge Disposition: Home Principal Diagnosis: Alcohol abuse and prescription drug abuse Medication Reconciliation Continued Medications: Venlafaxine Hcl (Venlafaxine Extended Rel) Unknown Strength Cap 1 CAP PO DAILY Zolpidem Tartrate (Ambien) 10 Mg Tab 10 MG PO HS PRN for Sleep, TAB Discharge Exam Patient was extubated this morning and 730am without any difficulty. Patient has been saturating well at room air. Long discussion was had this morning with regards to events that occurred yesterday evening. He says that yesterday evening was not a suicide attempt but her had 3 beers and a sleeping pill and he ended up falling down the stairs. He said he had a suicide attempt in April. He denies any current suicidal ideation and denies any plan to harm himself. 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 He currently does not talk to his parents and he says that his father is an alcoholic and his parents are currently having marital problems. He sees a Psychiatrist at [facility]; however, at [employer] he does not have a psychiatrist and is currently applying to see a therapist at [facility] but has had trouble organizing this through [facility]. He currently does not have a PCP. He is agreeable to see Dr. Ramsey in [place] for further medical management and referral to an outpatient counsellor and psychiatrist. Review of Systems: Constitutional: No fever, No chills Respiratory: No cough, No sputum, No wheezing, No shortness of breath Cardiovascular: No chest pain, No palpitations Abdomen: No pain, No nausea, No vomiting, No diarrhea, No constipation Musculoskeletal: No joint pain, No muscle pain, No swelling, No calf pain Neurologic: + memory loss Psychiatric: + depression symptoms, + insomnia, + substance abuse Hospital Course Historical information was obtained from Emergency Department staff an providers as well as nursing notes. Patient is a 21-year-old male who was reportedly found by friends to be extremely intoxicated. The patient allegedly sustained a fall down approximately 4 steps. In his room, he was found to have an open pill bottle of Ambien pills present. He is known to be prescribed these. He was brought to the emergency Department by private vehicle with his friends. On arrival, the patient was alert and conversant with staff members. He was initially argumentative with staff, but was agreeable to initial evaluation. Eventually, the patient became increasingly combative with staff and became a threat to himself as well as staff members. At this point, the patient was sedated and endotracheally intubated. While in the emergency department, the patient had an essentially unremarkable laboratory workup. He had trouble scans performed of the head, neck, chest, and abdomen/pelvis which were all essentially unremarkable. The friends were uncertain as to what the patient took specifically. There was concern of Ambien use versus fexofenadine use versus methylphenidate use. Per conversation with ED physician, the patient's mother was contacted and is reportedly estranged from the patient. The patient had an apparent history of attempted suicide attempt in April. Due to intubation the patient was admitted to the ICU for further care. Patient was extubated on 07/11/17 at 730am without any difficulty Long discussion was had the morning of 07/11 with regards to events that occurred the previous evening. He says that the evening of 07/10 was not a suicide attempt but he had 3 beers and a sleeping pill and he ended up falling down the stairs. He said he had a suicide attempt in April. He denies any current suicidal ideation and denies any plan to harm himself. 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 He currently does not talk to his parents and he says that his father is an alcoholic and his parents are currently having marital problems. He sees a Psychiatrist at [facility]; however, at [employer] he does not have a psychiatrist and is currently applying to see a therapist at [facility] but has had trouble organizing this through [facility]. He currently does not have a PCP. He is agreeable to see Dr. Ramsey in [place] for further medical management and referral to an outpatient counsellor and psychiatrist. Patient was discharged home on 07/11/2017 with follow up with Dr. Ramsey on July 18 Total Time Spent: Less than 30 minutes This includes examination of the patient, discharge planning, medication reconciliation, and communication with other providers. Discharge Instructions Please refer to the electronic Patient Visit Report (Discharge Instructions) for additional information. Additional Copies To Tony Ramsey MD
[2017-07-11] MEDS ORDERED: SUCCINYLCHOLINE CHLORIDE 20 MG/ML 10 ML VIAL IV ONE (11:55)
[2017-07-11] MEDS ORDERED: ETOMIDATE 2 MG/ML 20 ML VIAL IV ONE (11:55)
--- NOTE | 2017-07-11 16:53 | Progress Note ---
Subjective Date of Service: Jul 11, 2017. Subjective pt was seen post intubation and was not able to recall the events of last night , I stressed the need to follow up with DR Ramsey, to not use marijuana and/or alcohol and to seek counselling for substance abuse via [facility], he voiced an understanding of how serious of an event this was and stated he would think about substance counseling and follow up with a pcp Problem List Medical Problems: (1) Anticholinergic syndrome Status: Acute (2) Combative behavior Status: Acute (3) Dehydration Status: Acute (4) Facial contusion Status: Acute (5) Head injury, closed Status: Acute (6) Polysubstance overdose Status: Acute (7) Renal insufficiency Status: Acute Review of Systems Constitutional: No fever, No chills Eyes: No eye pain, No redness Neurologic: + memory loss, No paralysis Psychiatric: No depression symptoms, No anhedonism Objective Vital Signs Date Time Temp Pulse Resp B/P (MAP) Pulse Ox O2 Delivery O2 Flow Rate FiO2 07/11/17 05:31 73 13 132/85 (101) 100 Mechanical Ventilator 07/11/17 05:30 30 07/11/17 05:01 75 12 123/91 (102) 100 Mechanical Ventilator 07/11/17 04:35 30 07/11/17 04:15 36.5 83 14 134/98 100 Mechanical Ventilator 30 07/11/17 04:01 143/87 07/11/17 03:56 71 22 141/89 100 07/11/17 03:56 35 07/11/17 03:51 146/92 07/11/17 03:46 138/90 07/11/17 03:45 71 07/11/17 03:41 144/87 07/11/17 03:36 146/86 07/11/17 03:31 140/91 07/11/17 03:26 70 19 149/92 100 07/11/17 03:21 143/89 07/11/17 03:20 74 24 100 07/11/17 03:16 149/94 07/11/17 03:15 80 17 07/11/17 03:11 154/91 07/11/17 03:10 72 24 100 07/11/17 03:06 131/90 07/11/17 03:05 74 18 131/90 100 Mechanical Ventilator 07/11/17 03:05 72 12 100 07/11/17 03:00 71 12 100 07/11/17 02:56 145/88 07/11/17 02:55 72 12 100 07/11/17 02:51 138/85 07/11/17 02:50 73 12 100 07/11/17 02:46 134/89 07/11/17 02:45 71 14 100 07/11/17 02:41 140/90 07/11/17 02:40 73 12 100 07/11/17 02:36 138/84 07/11/17 02:35 73 12 100 07/11/17 02:31 134/84 07/11/17 02:30 75 12 100 07/11/17 02:26 143/80 07/11/17 02:25 80 12 100 07/11/17 02:21 143/87 07/11/17 02:20 84 17 100 07/11/17 02:16 146/92 07/11/17 02:15 82 19 100 07/11/17 02:11 143/86 07/11/17 02:10 81 17 100 07/11/17 02:06 137/92 07/11/17 02:05 81 13 100 07/11/17 02:01 133/78 07/11/17 02:00 79 13 100 07/11/17 01:51 113/65 07/11/17 01:50 74 12 100 07/11/17 01:46 117/65 07/11/17 01:45 75 22 100 07/11/17 01:41 35 07/11/17 01:41 115/58 07/11/17 01:40 74 19 100 07/11/17 01:36 134/85 07/11/17 01:35 76 12 100 07/11/17 01:31 130/94 07/11/17 00:44 100 07/11/17 00:13 86 07/10/17 23:58 36.9 92 17 125/79 97 Room Air Physical Exam General Appearance: WD/WN, no apparent distress Eyes: PERRL, EOMI ENT: + pertinent finding (abrasion on bridge of nose) Neurologic/Psychiatric: associate consulting engineer II-XII nml as tested, no motor/sensory deficits, alert, oriented x 3 Skin: normal color (except for abrasion on nose), warm/dry, no rash Laboratory Results Last 24 Hours Test 07/11/17 00:45 07/11/17 00:51 07/11/17 02:10 07/11/17 05:23 White Blood Count 6.16 K/uL 6.35 K/uL Red Blood Count 5.08 M/uL 4.03 M/uL Hemoglobin 15.7 g/dL 12.5 g/dL Hematocrit 45.3 % 36.4 % Mean Corpuscular Volume 89.2 fL 90.3 fL Mean Corpuscular Hemoglobin 30.9 pg 31.0 pg Mean Corpuscular Hemoglobin Concent 34.7 g/dl 34.3 g/dl Platelet Count 160 K/uL 124 K/uL Mean Platelet Volume 10.2 fL 10.2 fL Neutrophils (%) (Auto) 54.5 % Lymphocytes (%) (Auto) 36.4 % Monocytes (%) (Auto) 7.1 % Eosinophils (%) (Auto) 1.5 % Basophils (%) (Auto) 0.3 % Neutrophils # (Auto) 3.36 K/uL Lymphocytes # (Auto) 2.24 K/uL Monocytes # (Auto) 0.44 K/uL Eosinophils # (Auto) 0.09 K/uL Basophils # (Auto) 0.02 K/uL RDW Standard Deviation 38.6 fL 40.4 fL RDW Coefficient of Variation 12.0 % 12.2 % Immature Granulocyte % (Auto) 0.2 % Immature Granulocyte # (Auto) 0.01 K/uL Sodium Level 140 mmol/L 143 mmol/L Potassium Level 4.0 mmol/L 3.3 mmol/L Chloride Level 107 mmol/L 115 mmol/L Carbon Dioxide Level 25 mmol/L 20 mmol/L Anion Gap 8.0 mmol/L 19.0 mmol/L 8.0 mmol/L Blood Urea Nitrogen 16 mg/dl 10 mg/dl Creatinine 1.29 mg/dl 0.72 mg/dl Est Creatinine Clear Calc Drug Dose 99.4 ml/min 178.2 ml/min Estimated GFR () 91.2 > 150.0 Estimated GFR (Non- 78.7 133.3 BUN/Creatinine Ratio 12.4 14.2 Random Glucose 88 mg/dl 77 mg/dl Osmolality 315 mOsm/kg Calcium Level 8.6 mg/dl 5.6 mg/dl Total Bilirubin 0.3 mg/dl Aspartate Amino Transf (AST/SGOT) 12 U/L Alanine Aminotransferase (ALT/SGPT) 13 U/L Alkaline Phosphatase 60 U/L Total Creatine Kinase 203 U/L 209 U/L Troponin I < 0.015 ng/ml Total Protein 7.2 gm/dl Albumin 4.4 gm/dl Globulin 2.8 gm/dl Albumin/Globulin Ratio 1.6 Thyroid Stimulating Hormone (TSH) 0.592 uIu/ml Salicylates Level < 1.7 mg/dl Acetaminophen Level < 2 ug/ml Ethyl Alcohol mg/dL 87.6 mg/dl Bedside Hemoglobin 15.6 g/dl Bedside Hematocrit 46 % Bedside Sodium 141 mEq/L Bedside Potassium 4.0 mEq/L Bedside Chloride 103 mEq/L Bedside Total CO2 23 mEq/l Bedside Blood Urea Nitrogen 17 mg/dl Bedside Creatinine 1.4 mg/dl Bedside Glucose (other) 89 mg/dl Bedside Ionized Calcium (Alfred) 1.19 mmol/l Urine Color YELLOW Urine Appearance CLEAR Urine pH 5.0 Urine Specific [place] 1.039 Urine Protein NEG Urine Glucose (UA) NEG Urine Ketones NEG Urine Occult Blood NEG Urine Nitrite NEG Urine Bilirubin NEG Urine Urobilinogen NEG Urine Leukocyte Esterase NEG Urine WBC (Auto) 1-5 /hpf Urine RBC (Auto) 0-4 /hpf Urine Hyaline Casts (Auto) 1-5 /lpf Urine Epithelial Cells (Auto) >30 /lpf Urine Bacteria (Auto) NEG Urine Renal Epithelial Cells /lpf Urine Osmolality 275 mOms/kg Urine Opiates Screen NEG Urine Methadone, Qualitative NEG Urine Barbiturates NEG Urine Phencyclidine (PCP) Level NEG Ur Amphetamine/Methamphetamine NEG MDMA (Ecstasy) Screen NEG Urine Benzodiazepines Screen POS Urine Cocaine Metabolite NEG Urine Marijuana (THC) POS Nucleated RBC Absolute Count (auto) 0.00 K/uL Nucleated Red Blood Cells % 0.0 % Lactic Acid Level 1.4 mmol/L Magnesium Level 1.6 mg/dl Test 07/11/17 05:56 Bedside Glucose 72 mg/dl Assessment and Plan 21 y/o M Hx benzodiazepine abuse, seizure disorder, presented with toxic encephalopathy and was sedated and intubated. concern for drug overdose and possible Closed head injury Encephalopathy, An initial CT head is negative for ICH. A UDS is + only for Benzos and THC. Unresponsive then combative - likely combination of drugs and alcohol rather than significant head trauma. currently sedated with Propofol. Pending Lamictal level usually taken for seizures, was extubated and retuned to normal state, did eat lunch and was discharged but icu team Seizure disorder - a post-ictal state is certainly +. A prolactin level would not likely be useful due to time lapse. continue lamictal Full code -
[2017-07-14 07:48] LABS: HYDROXYETHYLFLURAZEPAM CONF NEGATIVE NG/ML (CUTOFF=50); HYDROXYMIDAZOLAM NEGATIVE NG/ML (CUTOFF=50); HYDROXYTRIAZOLAM CONF NEGATIVE NG/ML (CUTOFF=50); TEMAZEPAM CONF NEGATIVE NG/ML (CUTOFF=50)
== END 2017-07-11 11:56 | disposition home or self-care (01) | DRG 896 ==
LOC: C.EDB 23:53 → ENRESERV 07-11 03:54 → C.MSICU 07-11 04:12
PROVIDERS: ADMIT Internal Medicine; ATTEND Internal Medicine
PROC: 0BH17EZ Insertion of Endotracheal Airway into Trachea, Via Natural or Artificial Opening (ICD-10-PCS; principal; 2017-07-10)
PROC: 5A1945Z Respiratory Ventilation, 24-96 Consecutive Hours (ICD-10-PCS; principal; 2017-07-10)
DX: F13.129 Sedative, hypnotic or anxiolytic abuse with intoxication, unspecified (principal); G92 Toxic encephalopathy; F10.129 Alcohol abuse with intoxication, unspecified; T42.6X1A Poisoning by other antiepileptic and sedative-hypnotic drugs, accidental (unintentional), initial encounter; T45.0X1A Poisoning by antiallergic and antiemetic drugs, accidental (unintentional), initial encounter; T43.631A Poisoning by methylphenidate, accidental (unintentional), initial encounter; R41.82 Altered mental status, unspecified; R45.1 Restlessness and agitation; S00.83XA Contusion of other part of head, initial encounter; W10.9XXA Fall (on) (from) unspecified stairs and steps, initial encounter; Y93.79 Activity, other specified sports and athletics; Y92.039 Unspecified place in apartment as the place of occurrence of the external cause; E86.0 Dehydration; G40.909 Epilepsy, unspecified, not intractable, without status epilepticus; F32.9 Major depressive disorder, single episode, unspecified; G47.00 Insomnia, unspecified; Z91.5 Personal history of self-harm; Z79.899 Other long term (current) drug therapy

== ENCOUNTER 2017-08-06 15:50 | Emergency (ER) | payer OTHER ==
[~2017-08-06] VITALS: Ht 177.8 cm; Wt 82.6 kg
[~2017-08-06 15:50] MED LIST changes: -HYDR25CA PO; +VENL75CA73 PO; +ZOLP10TA PO
[2017-08-06 15:56] VITALS: TEMP 36.6; Ht 177.8 cm; Wt 82.6 kg
[2017-08-06] MEDS ORDERED: SODIUM CHLORIDE 0.9% 1000ML 2,000 ML IV STA (16:14)
[2017-08-06] MEDS ORDERED: LAMO100T16 PO (16:15)
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
[2017-08-06 16:54] LABS: BASO % 0.3 %; BASO ABS # 0.02 K/uL (0-0.2); COMPLETE YES; EOS % 1.1 %; HEMATOCRIT 47.4 % (42-52); IG% 0.2 %; LYMPH ABS # 1.46 K/uL (1.2-3.4); MEAN CELL VOLUME 89.9 fL (80-100); MEAN CORPUSCULAR HEMOGLOBIN 30.9 pg (25-34); MEAN CORPUSCULAR HGB CONC 34.4 g/dl (32-36); MEAN PLATELET VOLUME 9.8 fL (7.4-10.4); MONO % 6.9 %; NEUT % 69.5 %; PLATELET COUNT 139 K/uL (130-400); RED BLOOD COUNT 5.27 M/uL (4.7-6.1); WHITE BLOOD COUNT 6.65 K/uL (4.8-10.8)
--- NOTE | 2017-08-06 17:11 | DIAGNOSTIC IMAGING REPORT ---
CERVICAL SPINE W/O CT DOSE: 1661.01 mGy.cm HISTORY: Trauma. Pain. neck pain fall TECHNIQUE: Multiaxial CT images of the cervical spine were performed and reformatted in the sagittal and coronal plane without the use of contrast. A dose lowering technique was utilized adhering to the principles of ALARA. COMPARISON: None. FINDINGS: No fractures. No subluxation. Prevertebral soft tissues and the C1-C2 interval are intact. No pneumothorax. IMPRESSION: No fractures within the cervical spine. The above report was generated using voice recognition software. It may contain grammatical, syntax or spelling errors. Electronically signed by: Haroon Peters M.D. 08/06/2017 5:10 PM Dictated Date/Time: 08/06/2017 5:06 PM
--- NOTE | 2017-08-06 17:12 | DIAGNOSTIC IMAGING REPORT ---
HEAD WITHOUT CONTRAST (CT) CT DOSE: HISTORY: Trauma. Mental status change. head pain fall TECHNIQUE: Multiaxial CT images of the head were performed without the use of intravenous contrast. A dose lowering technique was utilized adhering to the principles of ALARA. Comparison: None. Findings: The paranasal sinuses and mastoid air cells are clear. The calvarium and skull base are intact. The ventricles and sulci are within normal limits. There is no mass, hematoma, midline shift, or acute infarct. Impression: No acute intracranial abnormality. The above report was generated using voice recognition software. It may contain grammatical, syntax or spelling errors. Electronically signed by: Haroon Peters M.D. 08/06/2017 5:11 PM Dictated Date/Time: 08/06/2017 5:10 PM
[2017-08-06 17:20] LABS: BUN/CREATININE RATIO 11.1 (10-20); CALCIUM 9.3 mg/dl (8.5-10.1); CREATININE 1.3 mg/dl (0.60-1.40); POTASSIUM 3.8 mmol/L (3.5-5.1)
[2017-08-06 17:35] LABS: ACETAMINOPHEN < 2 ug/ml (10-30)
[2017-08-06 17:41] LABS: MANUAL MICROSCOPIC REQUIRED? NO; REVIEW REQ? NO; URINE APPEARANCE CLOUDY (CLEAR); URINE BILIRUBIN NEG (NEG); URINE COLOR YELLOW; URINE EPITHELIAL CELL AUTO 0-5 /lpf (0-5); URINE NITRITE NEG (NEG); URINE PH 5.5 (4.5-7.5); URINE SPECIFIC GRAVITY 1.013 (1.000-1.030); UROBILINOGEN NEG (NEG); ZZUR CULT IF INDIC CLEAN CATCH NO
[2017-08-06 18:05] LABS: BENZODIAZEPINE, URINE POS (NEG); COCAINE,URINE NEG (NEG); PHENCYCLIDINE, URINE NEG (NEG)
--- NOTE | 2017-08-06 18:50 | DIAGNOSTIC IMAGING REPORT ---
CHEST ONE VIEW PORTABLE CLINICAL HISTORY: ABDOMINAL PAIN/GI pain. Nausea. COMPARISON STUDY: 07/11/2017 FINDINGS: The bones soft tissues and hemidiaphragms are normal. The cardiomediastinal silhouette is normal. The lungs are clear. The pulmonary vasculature is normal. IMPRESSION: Negative chest. The above report was generated using voice recognition software. It may contain grammatical, syntax or spelling errors. Electronically signed by: Haroon Peters M.D. 08/06/2017 6:48 PM Dictated Date/Time: 08/06/2017 6:48 PM
[2017-08-06] MEDS ORDERED: OLANZAPINE 10 MG/2.1 ML SDV IM STA (20:10)
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
--- NOTE | 2017-08-07 06:18 | EMERGENCY ROOM VISIT NOTE ---
ED Visit Note First contact with patient: 02:10 I received this patient in signout at the change of shift from Dr. Mosqueda, pending a more sober state. Patient had largely been cooperative while under my care. The patient did have some episodes of agitation. He was observed for close to 12 hours until he reached a coherent state. The patient initially was agreeable to a voluntary admission after his mental health assessment. Has been determined that he has been depressed and suicidal on multiple occasions in the last month. Nursing staff petitioned a 302 as the patient threatened to leave. I do think he is a threat to himself as he is unable to care for himself and is suicidal. He may also be a threat to others when under the influence of polypharmacy. At this time the patient will be signed out to Dr. Asencio pending a mobile crisis evaluation for the 302 warrant.
[2017-08-07] MEDS ORDERED: LORAZEPAM 1 MG TAB SL STA ×2 (06:57→06:58)
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
[2017-08-07 16:50] VITALS: BP 110/52; PULSE 79; O2SAT 99
[2017-08-11 07:23] LABS: HYDROXYETHYLFLURAZEPAM CONF NEGATIVE NG/ML (CUTOFF=50); HYDROXYMIDAZOLAM NEGATIVE NG/ML (CUTOFF=50); HYDROXYTRIAZOLAM CONF NEGATIVE NG/ML (CUTOFF=50); TEMAZEPAM CONF NEGATIVE NG/ML (CUTOFF=50)
== END 2017-08-07 17:29 ==
LOC: EDBD 15:50 → C.EDA 15:51
DX: T50.901A Poisoning by unspecified drugs, medicaments and biological substances, accidental (unintentional), initial encounter (principal); S00.33XA Contusion of nose, initial encounter; S00.11XA Contusion of right eyelid and periocular area, initial encounter; S00.12XA Contusion of left eyelid and periocular area, initial encounter; X58.XXXA Exposure to other specified factors, initial encounter; F32.9 Major depressive disorder, single episode, unspecified; G40.909 Epilepsy, unspecified, not intractable, without status epilepticus; F12.90 Cannabis use, unspecified, uncomplicated; G47.00 Insomnia, unspecified; Z79.899 Other long term (current) drug therapy